=== PATIENT | male | born 1990 | race Caucasian/White ===

== ENCOUNTER 2016-07-28 18:26 | Emergency (ER) | payer OTHER ==
[~2016-07-28] VITALS: Ht 185.4 cm; Wt 99.8 kg
[2016-07-28 18:27] VITALS: BP 135/78
== END 2016-07-28 22:13 | disposition home or self-care (01) ==
LOC: M ED 20:59
DX: S06.0X0A Concussion without loss of consciousness, initial encounter (principal); S00.93XA Contusion of unspecified part of head, initial encounter; W22.8XXA Striking against or struck by other objects, initial encounter; Y92.89 Other specified places as the place of occurrence of the external cause; Y93.89 Activity, other specified; Y99.0 Civilian activity done for income or pay